=== PATIENT | female | born 1940 | race African-American/Black ===

== ENCOUNTER 2016-09-24 12:40 | Inpatient (IN) ==
[2016-09-24 14:13] LABS: MANUAL DIFF NEEDED? NO
[2016-09-24 14:22] LABS: BASO% 0.1 % (0.0-0.8); EOS# 0.04 X1000 (0.0-0.7); EOS% 0.5 % (0.0-10.0); HEMATOCRIT 38.7 % (37.0-47.0); HEMOGLOBIN 12.3 g/dL (12.0-16.0); IMM GRAN# 0.02 X1000 (0.0-0.04); IMM GRAN% 0.3 % (0.0-0.5); LYMPH# 1.94 X1000 (1.2-3.4); LYMPH% 24.7 % (20.5-51.1); MCH 30.7 PG (27-31); MCHC 31.8 g/dL (33-37); MCV 96.5 FL (81-99); MONO# 1.01 X1000 (0.11-0.59); MONO% 12.9 % (1.7-9.3); MPV 10.8 FL (7.4-10.4); NEUT% 61.5 % (42.2-75.2); PLT 175 X1000 (130-400); RBC 4.01 XMIL (4.2-5.4)
[2016-09-24 14:43] LABS: AGAP 14; ALBUMIN 3.5 g/dL (3.5-5.0); ALKALINE PHOSPHATASE 84 U/L (32-104); BUN 21 mg/dL (8-22); CALCIUM 9.4 mg/dL (8.8-10.2); CHLORIDE 98 mmol/L (98-107); COSMO 281; GOT 57 U/L (10-30); GPT 20 U/L (10-36); POTASSIUM 4.5 mmol/L (3.5-5.1); SODIUM 140 mmol/L (136-145); TCO2 28 mmol/L (25-35); TOTAL PROTEIN 7.2 g/dL (6.3-8.3)
[2016-09-24] MEDS ORDERED: LOVENOX SUBQ SCH (16:15)
--- NOTE | 2016-09-24 16:25 | PROVIDER DOCUMENTATION ---
This chart was entered by Bobby Miller Scribe, acting as scribe for Sami White MD. HPI-General Adult - General Chief Complaint: B/P Problems Stated Complaint: Pain in throat Time Seen by Provider: 09/24/16 13:22 Source: patient, EMS Allergies/Adverse Reactions: Patient Allergies Allergy/AdvReac Type Severity Reaction Status Date / Time No Known Allergies Allergy Verified 09/24/16 13:43 Home Medications: Home Medication List Medication Instructions Recorded Confirmed Last Taken Type Amlodipine Besylate [Norvasc] 5 mg PO DAILY 09/24/16 09/24/16 09/21/16 History Atorvastatin Calcium [Lipitor] 40 mg PO DAILY 09/24/16 09/24/16 09/21/16 History Brimonidine/Timolol Ophth Soln 1 drop BOTH EYES BID 09/24/16 09/24/16 09/24/16 08:00 History [Combigan Ophth Soln] Ergocalciferol (Vitamin D2) 50,000 unit PO Q7D 09/24/16 09/24/16 09/17/16 History [Vitamin D] Esomeprazole [Nexium] 40 mg PO DAILY 09/24/16 09/24/16 09/24/16 08:00 History Ranitidine HCl [Zantac] 300 mg PO QHS 09/24/16 09/24/16 09/23/16 21:00 History - History of Present Illness -Gen Adult Nature of Presenting Problems: 76 y/o F presents to the ED c/o low bp and weakness. onset this morning. patient states she has not taken her bp medications in 2 days. some chest pain but has a hx of esophagitis and takes Prilosec. no other voiced complaints. Location of Pain/Injury: reports: chest Pain Radiation: reports: no radiation Quality of Pain: reports: none Severity: reports: mild Onset/Duration: reports: 2 days ago Timing: reports: still present Modifying Factors: improves with: nothing Associated Symptoms: reports: chest pain, weakness Review of Systems - Adult - REVIEW OF SYSTEMS - ADULT Constitutional: denies: chills, fever Eyes: reports: no symptoms reported Ears, Nose, Mouth & Throat: reports: no symptoms reported Cardiovascular: denies: chest pain, palpitations Respiratory: denies: shortness of breath, wheezing Gastrointestinal: denies: diarrhea, nausea, vomiting Genitourinary: denies: dysuria, frequency Integumentary: reports: no symptoms reported Neurological: reports: other (weakness). denies: dizziness/vertigo, headache/ migraines, seizure Psychiatric: reports: no symptoms reported Endocrine: reports: no symptoms reported Hematologic/Lymphatic: reports: no symptoms reported Allergic/Immunologic: reports: no symptoms reported All Other Systems: Reviewed and Negative Past History - Adult - PAST MEDICAL HISTORY-ADULT Review of Records: reports: Nursing Assessment Review, Medications Reviewed Major Childhood Illnesses: reports: denies history Cardiovascular: reports: HTN, hyperlipidemia Gastrointestinal: reports: GERD - PRIOR SURGERIES/PROCEDURES Surgical/Procedure History: reports: colonoscopy - IMMUNIZATION STATUS Childhood Immunizations: See Nurse Assessment Flu Vaccine: See Nurse Assessment Physical Exam-General - PHYSICAL EXAM-ADULT Initial Vital Signs Reviewed: Yes - CONSTITUTIONAL General Appearance: alert, no apparent distress - EYES Eyes: PERRL/EOMI, pink conjunctivae - HEAD, EARS, NOSE, MOUTH & THROAT HENMT: moist mucous membranes, normal ENT inspection - NECK Neck: full range of motion, normal inspection - RESPIRATORY Respiratory: lungs clear, normal breath sounds, no respiratory distress, no accessory muscle use - CARDIOVASCULAR Cardiovascular: normal peripheral pulses, regular rate, rhythm - GASTROINTESTINAL (ABDOMEN) Abdominal Exam: normal bowel sounds, non tender, soft - MUSCULOSKELETAL Extremity: normal range of motion, normal capillary refill - SKIN Integumentary: normal color, warm/dry - NEUROLOGIC Neurologic: dental intern II-XII nml as tested, no motor/sensory deficits - PSYCHIATRIC Psych/Mental Status: normal mood/affect, oriented x 3 Progress - PLAN OF CARE/RESULTS Progress/Plan/Lab Results: Vital Signs - 8 hr 09/24/16 12:52 09/24/16 12:53 Temperature 97.3 F L 97.3 F L Pulse Rate 55 L 55 L Respiratory Rate 18 18 Blood Pressure 106/66 106/66 O2 Sat by Pulse Oximetry 97 97 Orders Category Date Time Status CBC WITH ELECTRONIC DIFF [HEME] Stat Lab 09/24/16 13:24 Uncollected CMP [COMPREHENSIVE METABOLIC PANEL] [CHEM] Stat Lab 09/24/16 13:24 Uncollected Stool [OCCULT BLOOD SCREENING] [STOOL] Stat Lab 09/24/16 13:31 Uncollected T4 Stat Lab 09/24/16 13:32 Uncollected TROPONIN T Stat Lab 09/24/16 13:32 Uncollected TSH Stat Lab 09/24/16 13:32 Ordered EKG [EKG] Stat Ther 09/24/16 13:31 Ordered 1514-- on reassessment patient states has had an episode of chest pain x1 week ago. none at present. Result Diagrams: 09/24/16 13:35 09/24/16 13:35 - REASSESSMENT Reassessment #1 Time Reassessed: 16:23 Status: unchanged (informed of admission and cardiology will see in the morning) - EKG 1 Time of EKG reading by physician:: 12:33 EKG Read and Signed by:: Sami White EKG Interpretation (*Must complete 3 of following elements*): Abnormal Rate: 58 Rhythm: sinus bradycardia QRS: LVH ST Wave: non-specific ST changes - CONSULTS/PCP/HOSPITALIST Notification #1 *Consult/PCP/Hospitalist*: Dr Shea Time Discussed: 15:48 Consult Disposition: Admit Departure - Departure Time of Disposition Decision: 16:23 DIAGNOSIS: Myocardial infarction (lateral wall) Disposition: ADMITTED INPATIENT 09 Certified Medical Emergency: Emergent Condition: Stable Referrals and Follow-Ups: Umair Willis MD [Primary Care Provider] - - Critical Care Note This patient required my direct personal management.: Yes This chart was documented by the indicated scribe, (Bobby Miller Scribe) and accurately reflects the services I performed and decisions made by me, Sami White MD, as attested by the provider's signature.
--- NOTE | 2016-09-24 16:34 | CONSULTATION ---
DATE OF CONSULTATION: 09/24/2016 Ms. Brock is a 41-year-old, black lady with history of hypertension, comes with complaints of chest pain. She had chest pain last Friday and every day she has been having retrosternal chest discomfort. On Friday she had a severe retrosternal chest discomfort radiating to her neck. Since then she has been having these symptoms on a daily basis that would wax and wane. Not associated with any diaphoresis but she was short of breath with these symptoms. There is no palpitations. There is no dizziness or syncope today. She went to see Dr. Willis her primary physician, and was advised to come to the emergency room. Electrocardiogram revealed normal sinus rhythm with nonspecific ST-T changes. Cardiac enzymes, CK was normal. Troponin was abnormal at 1.830. At the time of my examination patient was pain free. Prior to this episode of the last 1 week she did not have any previous cardiac issues that she mentioned to me. REVIEW OF SYSTEMS: Fourteen point review of systems was done.GI: There is no history of nausea, vomiting, diarrhea. There is no history of hematemesis or melena. Central nervous system: No focal weakness to suggest a CVA or TIA. Genitourinary: There is no dysuria or hematuria. Respiratory: There is no history of cough, expectoration, hemoptysis. There is no history of fevers or chills. PAST MEDICAL HISTORY: Hypertension. Gastroesophageal reflux disease. HOME MEDICATIONS: She is on a Nexium 40, atorvastatin 40, amlodipine 5, ranitidine 300. She also takes eyedrops for cataract. SOCIAL HISTORY: She does not smoke. Does not drink. ALLERGIES: Is not known to be allergic to any medications. PHYSICAL EXAMINATION: Vital Signs: Blood pressure was 107/61. Cardiovascular System: Normal jugular venous pressure. There no thyromegaly. No carotid bruit. First and second heart sounds were heard. There is faint systolic murmur. Respiratory System: Normal air entry. There are no crepitations or rhonchi. Abdomen: Soft, nontender. There was no guarding or rigidity. Bowel sounds were heard. Central nervous system: Alert and was moving all 4 extremities. Extremities: Examination of extremities revealed no pedal edema. HEENT: Atraumatic, normocephalic. Pupils were equal and reacting to light. ASSESSMENT AND PLAN: Ms. Yolis Brock is a 76-year-old, lady with history of gastroesophageal reflux disease, hypertension comes with complaints of recurrent chest discomfort since last Friday, retrosternal radiating to the neck and jaw. Is admitted. She has non-Q-wave myocardial infarction. RECOMMENDATIONS: 1. Will start her on beta-blockers 25 mg twice daily. We will hold the calcium channel blockers. 2. We will start her on aspirin 325 mg daily. 3. We will get an echocardiogram to assess cardiac and valvular function. 4. We will get serial cardiac enzymes. I had a detailed discussion with her and her family. Recommended that she undergo a left heart catheterization. Risks, benefits, alternatives were explained. Patient will be set up for left heart catheterization in the morning. We will also give her Lovenox 1 mg/kg subcu twice daily. She has hypercholesterolemia and is on atorvastatin. Will get fasting lipid profile. I will continue with the atorvastatin. Thank you for the consult. We will follow hospital course. cc: Martinez Shea MD
[2016-09-24] MEDS: ASPIRIN PO SCH (17:52)
--- NOTE | 2016-09-24 17:52 | HISTORY AND PHYSICAL ---
HISTORY OF PRESENT ILLNESS: A 76-year-old who stated that a week ago Friday, which has been a little over a week, she started having some pains in her mid chest. Describes it as pressure that radiates into both her jaws. Sometimes the left shoulder and sometimes the right shoulder. Pretty good pain on Friday and then it let up some yesterday and today had more pain. PAST MEDICAL HISTORY: Hypercholesterolemia, hypertension. Really no other significant medical history that she reports. FAMILY HISTORY: Noncontributory. There is a history of coronary artery disease I believe in her family and a history of hypertension. SOCIAL HISTORY: Negative for alcohol or tobacco. She used to smoke years ago. CURRENT MEDICATION: She is on amlodipine 5 mg a day. Lipitor 40 mg a day. Brimonidine, timolol ophthalmic drops, which is Combigan 1 drop both eyes b.i.d., vitamin D2 at 50,000 units every week. Nexium 40 mg a day. Zantac 300 mg daily. REVIEW OF SYSTEMS: General: No weight gain or loss. No fever or chills. HEENT: Unremarkable. Respiratory: Does not report any increased dyspnea or orthopnea. No shortness of breath. No pleuritic pain. Cardiovascular: Chest pain as described above. No palpitations, but does not really describe diaphoresis but the pain was pressure and does radiate to the jaw. GI/: No complaints of GI bleeding, gross hematuria or dysuria. Musculoskeletal/Neurologic: No significant complaints. PHYSICAL EXAM: GENERAL: In the emergency room, she is in the hallway, comfortable, alert, oriented x3. VITAL SIGNS: Temperature 97.3, pulse 54, respirations 17, blood pressure 107/61. EYES: Pupils are equal and round. NECK: CVP less than 6 cm. LUNGS: Clear in all lung angela. CARDIOVASCULAR: Exam regular rhythm and rate without murmur or S3. PMI nondisplaced. No chest wall tenderness. ABDOMEN: Soft. No hepatojugular reflux. No hepatosplenomegaly. SKIN: Warm and dry. VASCULAR: Radial, carotid, popliteal pedal pulses 2+ and symmetrical. HEIGHT AND WEIGHT: Weight 158 pounds, height 5 feet 2 inches. LABS: Blood work: White count 7840, hematocrit 38, platelet count 175,000. Sodium 140, potassium 4.5, chloride 98, bicarb 28, BUN 21, creatinine 1.0, blood sugar 80, calcium 9.4. Troponin was 1.83. TSH is 3.57. T4 is 5.78. EKG did not reveal any ST elevation by report. ASSESSMENT AND PLAN: 1. Chest pain with elevated troponin. Concerned that she is having some unstable angina. Of note, heart rates in the 50s, possibility of right coronary lesion. At any rate, we are going to admit her. We will put her on some beta juan j, aspirin. I think we will go ahead and put her on some Lovenox as well. Cardiology is to see. She had a myocardial perfusion scan 06/23/2014. At that time, the scan was read. Baseline EKG shows sinus rhythm, 62 beats per minute. 2) Lexiscan stress test showed slight 0.5 mm depression in lead 2, predominantly during stress, but otherwise no significant changes. No significant arrhythmias. 3) No evidence of transient ischemia. 4) Perfusion image is a low level reversibility noted at the apex, otherwise unremarkable. Normal ejection fraction 61% at the time. Suspect she will need to be studied further. We will check serial cardiac enzymes. 2. History of hypertension. Blood pressure looks good at this point. Review of her medications. She is on amlodipine. We may stop the amlodipine, just put her on a beta juan j for now. 3. Hypercholesterolemia. 4. History of glaucoma. 5. History of gastroesophageal reflux. Continue her Zantac. She is taking Zantac and Nexium. Will continue those 2 for now. cc: Miles Finley MD
[2016-09-24] MEDS ORDERED: TYLENOL PO PRN (18:12)
[2016-09-24] MEDS ORDERED: LIPITOR PO SCH (18:12)
[2016-09-24] MEDS ORDERED: ZOFRAN IV PRN (18:12)
[2016-09-24] MEDS ORDERED: NITROGLYCERIN SL PRN (18:12)
[2016-09-24] MEDS ORDERED: VITAMIN D PO SCH (18:12)
[2016-09-24] MEDS: LOPRESSOR PO SCH (21:32)
[2016-09-24] MEDS: NEXIUM PO SCH (21:32)
[2016-09-24] MEDS: NORVASC PO SCH (21:32)
[2016-09-24] MEDS: LIPITOR PO SCH (21:32)
[2016-09-24] MEDS: COMBIGAN OPHTH SOLN BOTH EYES SCH (21:38)
--- NOTE | 2016-09-24 22:39 | ECHO REPORT ---
ORDER DATE: 09/24/2016 MEASUREMENTS: Left ventricular end-diastolic diameter 5.2, end-systolic diameter 3.9. Posterior wall thickness 1.2, septal thickness 1.4. Left atrium 4.2. Aortic root 2.6. SUMMARY: 1. Adequate quality study. 2. Very mild aortic valve sclerosis demonstrated, with normal aortic valve opening evident, and peak gradient of 11 mmHg. Mitral, tricuspid, and pulmonic valves are without structural abnormality, with mild mitral regurgitation, mild tricuspid regurgitation, and mild pulmonic insufficiency. The estimated systolic PA pressure by Doppler is 55-60 mmHg. The aortic root is normal in size. 3. Normal left ventricular chamber size, with mild concentric left hypertrophy is suggested. Estimated left ventricular ejection fraction is approximately 40%. There is akinesis of the [id number] inferoseptal region, akinesis of the [id number] inferior wall, and hypokinesis of the basal inferolateral wall. Doppler suggests grade 1 left ventricular diastolic dysfunction due to impaired relaxation. The left atrium is mildly enlarged. The right atrium and right ventricle are normal in size, with preserved right ventricular systolic function. 4. No pericardial effusion. 5. Appearance of inferior vena cava suggests normal central venous pressure. CONCLUSIONS: 1. Mild mitral regurgitation. 2. Mild tricuspid regurgitation, with moderate pulmonary hypertension by Doppler. 3. Mild concentric left hypertrophy. 4. Estimated left ventricular ejection fraction 40%, with akinesis of the [id number]-[id number] inferoseptal region, akinesis of bycrj-io-apl inferior wall, and hypokinesis of basal inferolateral wall. 5. Grade 1 left ventricular diastolic dysfunction suggested. 6. Mild left atrial enlargement. cc: MD Martinez Contreras MD
[2016-09-25] MEDS ORDERED: PNEUMOVAX 23 IM ONE (00:01)
[2016-09-25 02:31] LABS: HEMATOCRIT 36.4 % (37.0-47.0); HEMOGLOBIN 11.8 g/dL (12.0-16.0); MCH 31.4 PG (27-31); MCHC 32.4 g/dL (33-37); MCV 96.8 FL (81-99); MPV 10.7 FL (7.4-10.4); RBC 3.76 XMIL (4.2-5.4)
[2016-09-25 02:55] LABS: HEMOGLOBIN A1C 5.4 % (4.8-6.0)
[2016-09-25 03:08] LABS: AGAP 14; BUN 27 mg/dL (8-22); CALCIUM 9.3 mg/dL (8.8-10.2); CHLORIDE 100 mmol/L (98-107); COSMO 283; MAGNESIUM 2.1 mg/dL (1.5-2.7); POTASSIUM 4.2 mmol/L (3.5-5.1); SODIUM 139 mmol/L (136-145); TCO2 25 mmol/L (25-35)
[2016-09-25 03:26] LABS: FREE T4 0.97 ng/dL (0.93-1.70)
[2016-09-25 03:38] LABS: INR 1.01; PROTIME 10.6 Seconds (9.2-11.7)
--- NOTE | 2016-09-25 06:09 | EKG Report ---
Test Performed on : 09/24/2016 1:22:06 PM Test Reason : cp Blood Pressure : / mmHG Vent. Rate : 058 BPM Atrial Rate : 058 BPM P-R Int : 122 ms QRS Dur : 086 ms QT Int : 446 ms P-R-T Axes : 020 -15 -03 degrees QTc Int : 437 ms Sinus bradycardia. Minimal voltage criteria for LVH, may be normal variant Nonspecific T wave abnormality Abnormal ECG No previous ECGs available Unconfirmed Result
--- NOTE | 2016-09-25 07:32 | EKG Report ---
Test Performed on : 09/25/2016 07:10:06 AM Test Reason : NSTEMI Blood Pressure : / mmHG Vent. Rate : 055 BPM Atrial Rate : 055 BPM P-R Int : 128 ms QRS Dur : 084 ms QT Int : 424 ms P-R-T Axes : 020 -20 -23 degrees QTc Int : 405 ms Sinus bradycardia. Minimal voltage criteria for LVH, may be normal variant Nonspecific ST and T wave abnormality Abnormal ECG When compared with ECG of 25-SEP-2016 07:09, (Unconfirmed) premature ventricular complexes. are no longer present QT has shortened Confirmed by Blossom WARD, Jose M Landeros ([id number]) on 09/25/2016 6:39:44 PM
[2016-09-25] MEDS ORDERED: HEPARIN 1000 UNITS/NS 2,000 UNIT/1,000 ML IV.SOLN ONE (08:24)
[2016-09-25] MEDS ORDERED: NITROGLYCERIN ONE (08:37)
--- NOTE | 2016-09-25 09:00 | PROGRESS NOTE ---
DATE: 09/25/2016 SUBJECTIVE: Ms. Brock had a good night. Just had a little twinge of chest pain. She understands the plan of care, heart catheterization today. OBJECTIVE: Vital signs: Temp 99.0, pulse 62, respirations 18, blood pressure 110/69. Lungs: Clear in all lung angela. Cardiovascular: Regular rhythm and rate without murmur or S3. No distended neck veins. Abdomen: Soft. Skin: Warm and dry. Intake and output: Urine output 800 mL. LAB: White count 6,390, hematocrit 36, platelet count 185,000. Chemistry: Sodium 139, potassium 4.2, chloride 100, BUN 27, creatinine 1.0. ASSESSMENT AND PLAN: 1. Chest pain, elevated troponin. I suspect unstable angina. The plan is for heart catheterization today. She is on aspirin and beta juan j. Troponin elevated. 2. History of hypertension. Blood pressures look good. 3. Hypercholesterolemia. 4. History of glaucoma. 5. History gastroesophageal reflux. REVIEW OF HER ORDERS: She is on metoprolol 25 mg b.i.d., aspirin 325 mg a day, Norvasc 5 mg a day, vitamin D 81031 units weekly, Nexium 40 mg a day. Her EKG from yesterday with nonspecific ST, T-wave inversion in inferior leads anterolateral. No true ST depression. Follow up EKG this morning, no real change. cc: Miles Finley MD
[2016-09-25] MEDS ORDERED: DILAUDID ONE (09:17)
[2016-09-25] MEDS ORDERED: VERSED ONE (09:17)
[2016-09-25] MEDS ORDERED: CLAVE TWINSITE 32 IN 11959 ONE (09:18)
[2016-09-25] MEDS ORDERED: NS 1,000 ML ONE (09:18)
[2016-09-25] MEDS ORDERED: CLAVE PUMP SET NO FILTER 12260 ONE (09:18)
--- NOTE | 2016-09-25 10:29 | CARDIAC CATH REPORT ---
PROCEDURE NAME: - INDICATION: Non ST elevation PR. PROCEDURES PERFORMED: 1. Left heart catheterization. 2. Left ventriculogram. 3. Selective coronary angiography. PROCEDURE IN DETAIL: Ms. Brock was brought to the catheterization laboratory in a fasting state. Informed consent was obtained. Miles's test was proved adequate. A 5-Peruvian sheath was placed via true Seldinger technique. Radial cocktail was administered. Catheters were introduced. Hemodynamic measurements made in the ascending thoracic aorta. Coronary angiography was performed in multiple views using JL 3.5 and JR 4 diagnostic catheters. Left heart catheterization and left ventriculogram were performed using the JR 4. At the conclusion of the procedure, TR band was left inflated at 12 mL of air. Good capillary refill. Good hemostasis. Total of 75 mL of IV contrast, 5 mL of blood loss. No apparent complications. FINDINGS: 1. The left main appears normal. 2. Left anterior descending originates from the left main. Proximal vessel has mild disease with a subsequent 90% stenoses at the origin of the first diagonal. There is mild luminal irregularities noted thereafter, and the distal vessel appears normal. 3. Circumflex originates from the left main. It is a very small vessel. There is an ostial mild lesion noted in a high obtuse marginal. 4. Right coronary originates from the right coronary cusp. There is diffuse luminal regularities noted throughout the vessel with a discrete 30% to 40% proximal vessel, a mid vessel 60% lesion in the early distal vessel that has a 95% severe lesion. 5. Left ventriculogram demonstrates an EF of 40%. There is basilar akinesis. 6. Aortic blood pressure is 112/59 with a mean of 83. Left ventricle pressure is 115/80 with an LVEDP of 16. ASSESSMENT: Ms. Brock is a 76-year-old black female with a history of hypertension, who presented with a non ST elevation myocardial infarction. PLAN: She has severe lesions noted in the right coronary, as well as the proximal left anterior descending. She is not diabetic. She does have reduction in her EF. I believe both lesions are approachable from a PCI standpoint. We are pending discussion with [facility] regarding potential acceptance of this transfer and determination of whether she would be best treated with PCI versus bypass. cc: Bruce Reed MD
[2016-09-25] MEDS: LOPRESSOR PO SCH (10:53)
[2016-09-25] MEDS: ASPIRIN PO SCH (10:54)
[2016-09-25] MEDS: NEXIUM PO SCH (10:55)
[2016-09-25] MEDS: COMBIGAN OPHTH SOLN BOTH EYES SCH (10:55)
[2016-09-25] MEDS: LIPITOR PO SCH (10:55)
[2016-09-25] MEDS: NORVASC PO SCH (10:55)
[2016-09-25 16:06] VITALS: BP 109/64
--- NOTE | 2016-09-25 17:27 | DISCHARGE SUMMARY ---
ADMISSION DATE: 09/24/2016 DISCHARGE DATE: 09/25/2016 HISTORY OF PRESENT ILLNESS: A 76-year-old who for a week has been having some chest pain. It radiates to her jaw, described as pressure. She was admitted, initial troponin elevated. EKG pretty unremarkable. Hypercholesterolemia, hypertension. Really no other significant medical history. Dr. Shea was consulted. She has a history of gastroesophageal reflux disease and appeared to have a non-Q-wave myocardial infarction. Put on beta juan j and aspirin. Echocardiogram was performed. Mild mitral regurgitation. Mild tricuspid regurgitation. Moderate pulmonary hypertension. Mild concentric left ventricular hypertrophy. Estimated left ejection fraction about 40%. Akinesis at the basal to mid anteroseptal region. Akinesis at the basal to mid inferior wall and hypokinesis of the basal inferolateral wall. Grade 1 left ventricular diastolic dysfunction suggested. Mild left atrial enlargement. She underwent heart catheterization per Dr. Bruce Reed, she had severe lesions noted in the right coronary artery as well as proximal left anterior descending. She is nondiabetic. Does have reduction in her ejection fraction and I believe both these lesions could be approachable from PCI standpoint. So plan to send to [facility]. DISCHARGE MEDICATIONS: Continue the same medications we are on. Tylenol as needed. Norvasc 5 mg a day. Aspirin 325 mg a day. Lipitor 40 mg a day. Combigan eyedrops. Vitamin D 50,000 units a day. Nexium 40 mg a day. Metoprolol 25 mg b.i.d. cc: Miles Finley MD
== END 2016-09-25 19:11 | disposition short-term general hospital (02) ==
LOC: ED 12:40 → 3S 17:30 → SUATTDRO 17:30
PROVIDERS: ATTEND Emergency Medicine